=== PATIENT | male | born 1960 | race Hispanic/Latino ===

== ENCOUNTER 2022-11-18 10:55 | Inpatient (IN) | payer OTHER ==
[~2022-11-18] VITALS: Ht 177.8 cm; Wt 97.5 kg
[2022-11-18 11:27] LABS: BASOPHILS # (AUTO) 0.06 K/uL (0.00-0.20); BASOPHILS % (AUTO) 0.7 % (0.0-5.0); EOSINOPHILS # (AUTO) 0.05 K/uL (0.00-0.70); EOSINOPHILS % (AUTO) 0.5 % (0.0-8.0); HEMATOCRIT 40.6 % (42-54); IMMATURE GRANULOCYTE ABSOLUTE 0.03 K/uL (0-1); LYMPHOCYTES # (AUTO) 1.8 K/uL (1.0-4.8); LYMPHOCYTES % (AUTO) 19.3 % (21.0-51.0); MEAN CORPUSCULAR HEMOGLOBIN 38.4 pg (27.0-33.0); MEAN CORPUSCULAR HGB CONC 42.9 g/dL (32.0-36.0); MEAN CORPUSCULAR VOLUME 89.6 fL (79-99); MONOCYTES # (AUTO) 0.8 K/uL (0.1-1.0); MONOCYTES % (AUTO) 9.1 % (3.0-13.0); NEUTROPHILS # (AUTO) 6.4 K/uL (1.8-7.7); NEUTROPHILS % (AUTO) 70.1 % (40.0-77.0); PLATELET COUNT (AUTO) 156 K/uL (130-400); RED BLOOD CELL COUNT(AUTO) 4.53 MIL/uL (4.50-6.20); RED CELL DISTRIBUTION WIDTH 13.6 % (11.0-15.5); WHITE BLOOD COUNT (AUTO) 9.1 K/uL (4.8-10.8)
[2022-11-18 11:49] LABS: ALBUMIN 2.9 g/dL (3.5-5.0); BILIRUBIN,TOTAL 2.3 mg/dL (0.2-1.0); POTASSIUM 3.7 mmol/L (3.5-5.1); TOTAL PROTEIN, SERUM 7.7 g/dL (6.0-8.3)
[2022-11-18 11:51] LABS: SARS-CoV-2, RNA, NAAT NEGATIVE SARS CoV-2 (NEGATIVE)
[2022-11-18 11:56] LABS: INFLUENZA TYPE A Negative For Type A (NEGATIVE); INFLUENZA TYPE B Negative For Type B (NEGATIVE)
[2022-11-18] MEDS ORDERED: MORPHINE 4 MG SYG IM ONE (12:00)
[2022-11-18] MEDS ORDERED: 0.9%NACL 1000ML 2,000 ML IV ONE (12:00)
[2022-11-18] MEDS ORDERED: ONDANSETRON 4MG INJ IVP ONE (12:00)
[2022-11-18] MEDS ORDERED: INSULIN HUMULIN R 100 UNIT/ML 3ML IV ONE (13:30)
[2022-11-18 13:49] LABS: ABG BASE EXCESS -15.3 mmol/L (-2.0-3.0); ABG HCO3 11.6 mmol/L (21.0-28.0); ABG OXYGEN SATURATION 93.9 % (95.0-99.0); ABG PCO2 31 mmHg (35-48); ABG PH 7.189 (7.35-7.450); CARBON MONOXIDE 0.5; PO2, ARTERIAL BG 75.7 mmHg (83.0-108.0); VENT MODE, BG RA (ROOM AIR)
[2022-11-18 13:49] LABS: ADD UA MICROSCOPIC YES; APPEARANCE,URINE CLEAR (CLEAR); BILIRUBIN,URINE NEGATIVE (NEGATIVE); COLOR,URINE LIGHT-YELLOW (YELLOW); GLUCOSE, URINE (UA) >=1000 mg/dL (NEGATIVE); KETONES,URINE 150 mg/dL (NEGATIVE); LEUKOCYTE ESTERASE ,URINE NEGATIVE Leu/uL (NEGATIVE); NITRATE,URINE NEGATIVE (NEGATIVE); OCCULT BLOOD,URINE NEGATIVE (NEGATIVE); PH,URINE 5.5 (5.0-8.0); PROTEIN,URINE 50 mg/dL (NEGATIVE); UROBILINOGEN,URINE 0.2 mg/dL (0.2-1.0)
[2022-11-18 13:50] LABS: MUCUS,URINE RARE LPF (None Seen); RBC,URINE 0-1 /HPF (0-1); SQUAMOUS EPITHELIAL CELL,UR RARE /HPF (0-2); WBC,URINE 0-1 /HPF (0-1)
[2022-11-18] MEDS ORDERED: MAGNESIUM 2GM PREMIX 50ML 50 ML IV PRN (14:00)
[2022-11-18] MEDS ORDERED: HYDROMORPHONE 1 MG INJ IVP ONE (14:00)
[2022-11-18] MEDS ORDERED: POTASSIUM CHLORIDE 20MEQ/100ML 100 ML IV PRN (14:00)
[2022-11-18] MEDS ORDERED: GLUCAGON 1MG KIT 1 MG ML IM PRN (14:00)
[2022-11-18] MEDS ORDERED: 0.9%NACL 1000ML 1,000 ML IV ONE (14:00)
[2022-11-18] MEDS ORDERED: DEXTROSE 50%-WATER 50 ML DISP.SYRIN IV PRN (14:00)
[2022-11-18] MEDS: 0.9%NACL 1000ML 1,000 ML IV SCH ×2 (14:41→20:46)
[2022-11-18] MEDS ORDERED: INSULIN REGULAR, HUMAN 3ML 100 UNIT in 0.9%NACL 100ML 99 ML IV SCH ×2 (15:30)
[2022-11-18] MEDS ORDERED: IOHEXOL 350 MG/ML 100ML INFUS..BTL IV ONE (16:02)
[2022-11-18] MEDS ORDERED: INSULIN HUMULIN R 100 UNIT/ML 3ML SQ SCH (18:00)
[2022-11-18] MEDS: INSULIN REGULAR, HUMAN 3ML 100 UNIT in 0.9%NACL 100ML 100 ML IV SCH ×2 (19:00)
[2022-11-18] MEDS ORDERED: 0.9%NACL 1000ML 1,000 ML IV SCH (19:30)
[2022-11-18] MEDS ORDERED: MAGNESIUM 2GM PREMIX 50ML 50 ML IV SCH (19:30)
[2022-11-18] MEDS ORDERED: MORPHINE 2 MG SYG ONE (19:43)
[2022-11-18] MEDS ORDERED: MORPHINE 2 MG SYG IVP PRN ×2 (20:00)
[2022-11-18 20:12] LABS: POTASSIUM 5.1 mmol/L (3.5-5.1)
[2022-11-18] MEDS: D5W-1/2 NS/20MEQ KCL 1,000 ML IV SCH (20:38)
[2022-11-18] MEDS ORDERED: PROMETHAZINE HCL 25 MG TABLET PO PRN (21:00)
[2022-11-18] MEDS ORDERED: CHLORDIAZEPOXIDE HCL 25 MG CAP PO PRN ×2 (21:00)
[2022-11-18] MEDS ORDERED: FAMOTIDINE 20MG VIAL IV SCH (21:00)
[2022-11-18] MEDS ORDERED: PHARMACY COMMUNICATION MISC PRN (21:00)
[2022-11-18] MEDS ORDERED: LORAZEPAM 2 MG/ML 1 ML VIAL IVP PRN ×2 (21:00)
[2022-11-18 21:12] LABS: CREATININE 0.8 mg/dL (0.5-1.5)
[2022-11-18] MEDS: THIAMINE HCL 100 MG, FOLIC ACID 1 MG, M.V.I. IV [ADULT] 10 ML in 0.9%NACL 1000ML 1,000 ML IV SCH (21:16)
[2022-11-19] VITALS (23 sets, daily range): BP systolic 108–132; BP diastolic 59–80; PULSE 94–110; RESP 18–29; O2SAT 95–97
[2022-11-19] MEDS ORDERED: METF-444 PO (00:01)
[2022-11-19] MEDS: MORPHINE 2 MG SYG IVP PRN ×2 (00:30→10:08)
[2022-11-19 01:02] LABS: CREATININE 0.4 mg/dL (0.5-1.5)
[2022-11-19 01:43] LABS: POTASSIUM 4.1 mmol/L (3.5-5.1)
[2022-11-19 02:09] LABS: CREATININE 0.5 mg/dL (0.5-1.5)
[2022-11-19] MEDS: D5W-1/2 NS/20MEQ KCL 1,000 ML IV SCH (03:51)
[2022-11-19] MEDS: 0.9%NACL 1000ML 1,000 ML IV SCH ×3 (03:51→19:13)
[2022-11-19 06:25] LABS: HEMATOCRIT 39.3 % (42-54); MEAN CORPUSCULAR HEMOGLOBIN 33.4 pg (27.0-33.0); MEAN CORPUSCULAR HGB CONC 37.7 g/dL (32.0-36.0); MEAN CORPUSCULAR VOLUME 88.7 fL (79-99); RED BLOOD CELL COUNT(AUTO) 4.43 MIL/uL (4.50-6.20); RED CELL DISTRIBUTION WIDTH 14.2 % (11.0-15.5); WHITE BLOOD COUNT (AUTO) 6.9 K/uL (4.8-10.8)
[2022-11-19 07:20] LABS: ALBUMIN 2.6 g/dL (3.5-5.0); BILIRUBIN,TOTAL 0.5 mg/dL (0.2-1.0); CARBON DIOXIDE 17 mmol/L (21-32); CHLORIDE 103 mmol/L (101-111); CREATININE 0.9 mg/dL (0.5-1.5); GLOMERULAR FILTR. RATE CALC 98 mL/min (>90); GLUCOSE,RANDOM 237 mg/dL (70-105); SODIUM SERUM 133 mmol/L (136-145); TOTAL PROTEIN, SERUM 6.9 g/dL (6.0-8.3); TRIGLYCERIDES 608 mg/dL (30-200); UREA NITROGEN, BLOOD 5 mg/dL (7-18)
[2022-11-19 07:36] LABS: ASPARTATE AMINOTRANSFERASE 23 U/L (10-37)
[2022-11-19 07:37] LABS: ALANINE AMINOTRANSFERASE < 6 U/L (12-78)
[2022-11-19 07:52] LABS: CARBON DIOXIDE 15 mmol/L (21-32); CHLORIDE 101 mmol/L (101-111); GLUCOSE,RANDOM 286 mg/dL (70-105); SODIUM SERUM 132 mmol/L (136-145); UREA NITROGEN, BLOOD 5 mg/dL (7-18)
[2022-11-19 08:22] LABS: CREATININE < 0.2 mg/dL (0.5-1.5); GLOMERULAR FILTR. RATE CALC 154 mL/min (>90)
[2022-11-19] MEDS: FISH OIL 1000 MG/CAP PO SCH ×3 (09:00→20:46)
[2022-11-19] MEDS: FENOFIBRATE NANOCRYSTALLIZED 145 MG TAB PO SCH ×2 (09:00→09:50)
[2022-11-19] MEDS: PANTOPRAZOLE 40 MG/VIAL IVP SCH ×2 (09:13→20:47)
[2022-11-19] MEDS: ENOXAPARIN SODIUM 40 MG/0.4 ML SYRINGE SQ SCH (09:14)
[2022-11-19] MEDS: INSULIN GLARGINE 100 UNITS/ML 10 ML VIAL SQ SCH ×2 (10:19→20:51)
[2022-11-19] MEDS ORDERED: MAGNESIUM 2GM PREMIX 50ML 50 ML IV PRN (10:30)
[2022-11-19] MEDS ORDERED: MAGNESIUM 2GM PREMIX 50ML 50 ML IV SCH (12:00)
[2022-11-19 12:29] LABS: CREATININE 0.8 mg/dL (0.5-1.5); POTASSIUM 3.4 mmol/L (3.5-5.1)
[2022-11-19] MEDS: POTASSIUM CHLORIDE 10MEQ/100ML 100 ML IV PRN ×3 (13:33→23:52)
[2022-11-19 16:02] LABS: CREATININE 0.7 mg/dL (0.5-1.5); POTASSIUM 3.9 mmol/L (3.5-5.1)
[2022-11-19] MEDS: INSULIN REGULAR, HUMAN 3ML 100 UNIT in 0.9%NACL 100ML 100 ML IV SCH ×2 (19:11)
[2022-11-19 19:43] LABS: CREATININE 0.7 mg/dL (0.5-1.5); MAGNESIUM 2.1 mg/dL (1.80-2.40); POTASSIUM 3.6 mmol/L (3.5-5.1)
[2022-11-19] MEDS: THIAMINE HCL 100 MG, FOLIC ACID 1 MG, M.V.I. IV [ADULT] 10 ML in 0.9%NACL 1000ML 1,000 ML IV SCH (20:49)
[2022-11-19 23:31] LABS: CREATININE 0.8 mg/dL (0.5-1.5); POTASSIUM 3.1 mmol/L (3.5-5.1)
[2022-11-20] VITALS (64 sets, daily range): BP systolic 96–115; BP diastolic 38–77; PULSE 88–110; RESP 15–30; O2SAT 97–98
[2022-11-20] MEDS: POTASSIUM CHLORIDE 10MEQ/100ML 100 ML IV PRN ×3 (01:07→11:23)
[2022-11-20 03:49] LABS: BASOPHILS # (AUTO) 0.02 K/uL (0.00-0.20); BASOPHILS % (AUTO) 0.3 % (0.0-5.0); EOSINOPHILS # (AUTO) 0.05 K/uL (0.00-0.70); EOSINOPHILS % (AUTO) 0.8 % (0.0-8.0); HEMATOCRIT 33.5 % (42-54); IMMATURE GRANULOCYTE ABSOLUTE 0.02 K/uL (0-1); LYMPHOCYTES # (AUTO) 1.3 K/uL (1.0-4.8); LYMPHOCYTES % (AUTO) 20.5 % (21.0-51.0); MEAN CORPUSCULAR HEMOGLOBIN 31.5 pg (27.0-33.0); MEAN CORPUSCULAR HGB CONC 35.2 g/dL (32.0-36.0); MEAN CORPUSCULAR VOLUME 89.3 fL (79-99); MONOCYTES # (AUTO) 0.5 K/uL (0.1-1.0); MONOCYTES % (AUTO) 7.7 % (3.0-13.0); NEUTROPHILS # (AUTO) 4.3 K/uL (1.8-7.7); NEUTROPHILS % (AUTO) 70.4 % (40.0-77.0); PLATELET COUNT (AUTO) 127 K/uL (130-400); RED BLOOD CELL COUNT(AUTO) 3.75 MIL/uL (4.50-6.20); RED CELL DISTRIBUTION WIDTH 14.3 % (11.0-15.5); WHITE BLOOD COUNT (AUTO) 6.1 K/uL (4.8-10.8)
[2022-11-20 04:06] LABS: ALBUMIN 2.1 g/dL (3.5-5.0); BILIRUBIN,DIRECT 0.1 mg/dL (0.0-0.3); BILIRUBIN,TOTAL 0.6 mg/dL (0.2-1.0); CREATININE 0.6 mg/dL (0.5-1.5); POTASSIUM 3.6 mmol/L (3.5-5.1); TOTAL PROTEIN, SERUM 5.8 g/dL (6.0-8.3)
[2022-11-20] MEDS: 0.9%NACL 1000ML 1,000 ML IV SCH ×3 (05:15→21:50)
[2022-11-20 07:41] LABS: CREATININE 0.6 mg/dL (0.5-1.5); POTASSIUM 3.1 mmol/L (3.5-5.1)
[2022-11-20] MEDS: THIAMINE HCL 100 MG/ML 2ML VIAL IVP SCH (07:59)
[2022-11-20] MEDS: FISH OIL 1000 MG/CAP PO SCH ×2 (07:59→20:29)
[2022-11-20] MEDS: FENOFIBRATE NANOCRYSTALLIZED 145 MG TAB PO SCH (08:00)
[2022-11-20] MEDS: ENOXAPARIN SODIUM 40 MG/0.4 ML SYRINGE SQ SCH (08:00)
[2022-11-20] MEDS: PANTOPRAZOLE 40 MG/VIAL IVP SCH ×2 (08:00→20:29)
[2022-11-20] MEDS: INSULIN GLARGINE 100 UNITS/ML 10 ML VIAL SQ SCH ×2 (08:01→20:30)
[2022-11-20] MEDS: INSULIN HUMULIN R 100 UNIT/ML 3ML SQ SCH ×3 (11:20→20:32)
[2022-11-20] MEDS ORDERED: POTASSIUM CHLORIDE 10% ELIXIR 20 MEQ/15 ML UDCUP PO PRN (12:00)
[2022-11-20 13:13] LABS: ABG BASE EXCESS -1.3 mmol/L (-2.0-3.0); ABG HCO3 23.6 mmol/L (21.0-28.0); ABG OXYGEN SATURATION 93.2 % (95.0-99.0); ABG PCO2 41 mmHg (35-48); ABG PH 7.383 (7.35-7.450); PO2, ARTERIAL BG 67.5 mmHg (83.0-108.0); VENT MODE, BG RA (ROOM AIR)
[2022-11-20 16:17] LABS: CREATININE 0.6 mg/dL (0.5-1.5); POTASSIUM 3.6 mmol/L (3.5-5.1)
[2022-11-20] MEDS: THIAMINE HCL 100 MG, FOLIC ACID 1 MG, M.V.I. IV [ADULT] 10 ML in 0.9%NACL 1000ML 1,000 ML IV SCH (20:33)
[2022-11-21] VITALS (13 sets, daily range): BP systolic 107–120; BP diastolic 57–83; PULSE 79–88; RESP 16–28; O2SAT 97–99
[2022-11-21 04:39] LABS: BASOPHILS # (AUTO) 0.01 K/uL (0.00-0.20); BASOPHILS % (AUTO) 0.2 % (0.0-5.0); EOSINOPHILS % (AUTO) 1.8 % (0.0-8.0); HEMATOCRIT 31.5 % (42-54); IMMATURE GRANULOCYTE ABSOLUTE 0.03 K/uL (0-1); LYMPHOCYTES # (AUTO) 1.3 K/uL (1.0-4.8); LYMPHOCYTES % (AUTO) 22.5 % (21.0-51.0); MEAN CORPUSCULAR HEMOGLOBIN 30.9 pg (27.0-33.0); MEAN CORPUSCULAR HGB CONC 34.3 g/dL (32.0-36.0); MEAN CORPUSCULAR VOLUME 90.3 fL (79-99); MONOCYTES # (AUTO) 0.5 K/uL (0.1-1.0); MONOCYTES % (AUTO) 8.2 % (3.0-13.0); NEUTROPHILS # (AUTO) 3.8 K/uL (1.8-7.7); NEUTROPHILS % (AUTO) 66.8 % (40.0-77.0); PLATELET COUNT (AUTO) 132 K/uL (130-400); RED BLOOD CELL COUNT(AUTO) 3.49 MIL/uL (4.50-6.20); RED CELL DISTRIBUTION WIDTH 14.7 % (11.0-15.5); WHITE BLOOD COUNT (AUTO) 5.6 K/uL (4.8-10.8)
[2022-11-21 04:57] LABS: ALBUMIN 2.1 g/dL (3.5-5.0); BILIRUBIN,DIRECT 0.1 mg/dL (0.0-0.3); BILIRUBIN,TOTAL 0.4 mg/dL (0.2-1.0); CREATININE 0.6 mg/dL (0.5-1.5); POTASSIUM 3.1 mmol/L (3.5-5.1); TOTAL PROTEIN, SERUM 5.7 g/dL (6.0-8.3)
[2022-11-21] MEDS: KCL 20 MEQ ERTAB PO PRN ×4 (05:29→17:39)
[2022-11-21] MEDS: 0.9%NACL 1000ML 1,000 ML IV SCH ×3 (05:32→22:01)
[2022-11-21] MEDS: INSULIN HUMULIN R 100 UNIT/ML 3ML SQ SCH ×4 (07:30→20:42)
[2022-11-21] MEDS: INSULIN GLARGINE 100 UNITS/ML 10 ML VIAL SQ SCH ×2 (08:04→20:41)
[2022-11-21] MEDS: FISH OIL 1000 MG/CAP PO SCH ×2 (08:31→20:41)
[2022-11-21] MEDS: PANTOPRAZOLE 40 MG/VIAL IVP SCH (08:31)
[2022-11-21] MEDS: FENOFIBRATE NANOCRYSTALLIZED 145 MG TAB PO SCH (08:31)
[2022-11-21] MEDS: THIAMINE HCL 100 MG/ML 2ML VIAL IVP SCH (08:31)
[2022-11-21] MEDS: ENOXAPARIN SODIUM 40 MG/0.4 ML SYRINGE SQ SCH ×2 (08:32→08:33)
[2022-11-21] MEDS: PANTOPRAZOLE 40 MG TAB DR PO SCH (20:41)
[2022-11-22] VITALS: BP 123/76; PULSE 86; RESP 18
[2022-11-22 04:00] VITALS: BP 125/84; PULSE 80; RESP 18
[2022-11-22] MEDS: INSULIN HUMULIN R 100 UNIT/ML 3ML SQ SCH ×4 (05:31→20:39)
[2022-11-22 06:07] LABS: BASOPHILS # (AUTO) 0.02 K/uL (0.00-0.20); BASOPHILS % (AUTO) 0.4 % (0.0-5.0); EOSINOPHILS # (AUTO) 0.12 K/uL (0.00-0.70); EOSINOPHILS % (AUTO) 2.4 % (0.0-8.0); HEMATOCRIT 31.7 % (42-54); IMMATURE GRANULOCYTE ABSOLUTE 0.03 K/uL (0-1); LYMPHOCYTES # (AUTO) 1.4 K/uL (1.0-4.8); LYMPHOCYTES % (AUTO) 27.6 % (21.0-51.0); MEAN CORPUSCULAR HEMOGLOBIN 30.3 pg (27.0-33.0); MEAN CORPUSCULAR HGB CONC 33.1 g/dL (32.0-36.0); MEAN CORPUSCULAR VOLUME 91.4 fL (79-99); MONOCYTES # (AUTO) 0.4 K/uL (0.1-1.0); MONOCYTES % (AUTO) 8.5 % (3.0-13.0); NEUTROPHILS % (AUTO) 60.5 % (40.0-77.0); PLATELET COUNT (AUTO) 149 K/uL (130-400); RED BLOOD CELL COUNT(AUTO) 3.47 MIL/uL (4.50-6.20); RED CELL DISTRIBUTION WIDTH 14.9 % (11.0-15.5); WHITE BLOOD COUNT (AUTO) 4.9 K/uL (4.8-10.8)
[2022-11-22] MEDS: INSULIN GLARGINE 100 UNITS/ML 10 ML VIAL SQ SCH ×2 (06:08→20:49)
[2022-11-22 06:29] LABS: ALBUMIN 2.1 g/dL (3.5-5.0); BILIRUBIN,DIRECT 0.1 mg/dL (0.0-0.3); BILIRUBIN,TOTAL 0.3 mg/dL (0.2-1.0); CREATININE 0.5 mg/dL (0.5-1.5); TOTAL PROTEIN, SERUM 5.9 g/dL (6.0-8.3)
[2022-11-22 06:31] LABS: POTASSIUM 2.8 mmol/L (3.5-5.1)
[2022-11-22] MEDS: KCL 20 MEQ ERTAB PO PRN ×6 (06:40→17:20)
[2022-11-22 08:00] VITALS: BP 125/90; PULSE 76; RESP 20; O2SAT 96
[2022-11-22] MEDS: FISH OIL 1000 MG/CAP PO SCH ×2 (09:34→19:50)
[2022-11-22] MEDS: THIAMINE HCL 100 MG TABLET PO SCH (09:35)
[2022-11-22] MEDS: PANTOPRAZOLE 40 MG TAB DR PO SCH ×2 (09:35→19:50)
[2022-11-22] MEDS: FENOFIBRATE NANOCRYSTALLIZED 145 MG TAB PO SCH (09:35)
[2022-11-22] MEDS: ENOXAPARIN SODIUM 40 MG/0.4 ML SYRINGE SQ SCH (09:36)
[2022-11-22 12:00] VITALS: BP 128/78; PULSE 85; RESP 20
[2022-11-22] MEDS: 0.9%NACL 1000ML 1,000 ML IV SCH ×2 (12:12→23:03)
[2022-11-22 16:00] VITALS: BP 139/79; PULSE 80; RESP 20
[2022-11-22 20:00] VITALS: BP 139/74; PULSE 75; RESP 18
[2022-11-22] MEDS ORDERED: ZOLPIDEM TARTRATE 5 MG TAB PO ONE (23:00)
[2022-11-23] VITALS: BP 142/93; PULSE 79; RESP 18
[2022-11-23 04:00] VITALS: BP 147/91; PULSE 78; RESP 18
[2022-11-23 06:06] LABS: BASOPHILS # (AUTO) 0.01 K/uL (0.00-0.20); BASOPHILS % (AUTO) 0.2 % (0.0-5.0); EOSINOPHILS # (AUTO) 0.15 K/uL (0.00-0.70); EOSINOPHILS % (AUTO) 3.5 % (0.0-8.0); HEMATOCRIT 32.5 % (42-54); IMMATURE GRANULOCYTE ABSOLUTE 0.02 K/uL (0-1); LYMPHOCYTES # (AUTO) 1.4 K/uL (1.0-4.8); LYMPHOCYTES % (AUTO) 31.7 % (21.0-51.0); MEAN CORPUSCULAR HEMOGLOBIN 30.7 pg (27.0-33.0); MEAN CORPUSCULAR HGB CONC 33.5 g/dL (32.0-36.0); MEAN CORPUSCULAR VOLUME 91.5 fL (79-99); MONOCYTES # (AUTO) 0.5 K/uL (0.1-1.0); MONOCYTES % (AUTO) 11.5 % (3.0-13.0); NEUTROPHILS # (AUTO) 2.2 K/uL (1.8-7.7); NEUTROPHILS % (AUTO) 52.6 % (40.0-77.0); PLATELET COUNT (AUTO) 155 K/uL (130-400); RED BLOOD CELL COUNT(AUTO) 3.55 MIL/uL (4.50-6.20); RED CELL DISTRIBUTION WIDTH 14.5 % (11.0-15.5); WHITE BLOOD COUNT (AUTO) 4.3 K/uL (4.8-10.8)
[2022-11-23 06:18] LABS: ALBUMIN 2.2 g/dL (3.5-5.0); BILIRUBIN,DIRECT 0.1 mg/dL (0.0-0.3); BILIRUBIN,TOTAL 0.4 mg/dL (0.2-1.0); CREATININE 0.6 mg/dL (0.5-1.5); POTASSIUM 3.2 mmol/L (3.5-5.1); TOTAL PROTEIN, SERUM 6.1 g/dL (6.0-8.3)
[2022-11-23] MEDS: INSULIN HUMULIN R 100 UNIT/ML 3ML SQ SCH ×2 (07:08→11:29)
[2022-11-23] MEDS: INSULIN GLARGINE 100 UNITS/ML 10 ML VIAL SQ SCH (07:09)
[2022-11-23] MEDS: KCL 20 MEQ ERTAB PO PRN ×2 (07:19→11:20)
[2022-11-23 08:00] VITALS: BP 139/93; PULSE 71; RESP 17; O2SAT 96
[2022-11-23] MEDS: FENOFIBRATE NANOCRYSTALLIZED 145 MG TAB PO SCH (08:46)
[2022-11-23] MEDS: THIAMINE HCL 100 MG TABLET PO SCH (08:46)
[2022-11-23] MEDS: FISH OIL 1000 MG/CAP PO SCH (08:46)
[2022-11-23] MEDS: PANTOPRAZOLE 40 MG TAB DR PO SCH (08:46)
[2022-11-23] MEDS: ENOXAPARIN SODIUM 40 MG/0.4 ML SYRINGE SQ SCH (08:47)
[2022-11-23] MEDS: 0.9%NACL 1000ML 1,000 ML IV SCH (08:53)
[2022-11-23] MEDS ORDERED: KCL 20 MEQ ERTAB PO ONE (11:30)
== END 2022-11-23 12:25 | disposition home or self-care (01) | DRG 637 ==
LOC: EDH 10:55 → EDHIP 10:56 → 2CV 11-19 05:00 → 2CH 11-19 15:12 → 3CH 11-21 10:30
PROVIDERS: ADMIT Hospitalist; ATTEND Hospitalist
DX: E11.10 Type 2 diabetes mellitus with ketoacidosis without coma (principal); E43 Unspecified severe protein-calorie malnutrition; K85.80 Other acute pancreatitis without necrosis or infection; E87.1 Hypo-osmolality and hyponatremia; Z20.822 Contact with and (suspected) exposure to COVID-19; D50.9 Iron deficiency anemia, unspecified; F10.20 Alcohol dependence, uncomplicated; E86.1 Hypovolemia; E78.1 Pure hyperglyceridemia; Z68.30 Body mass index [BMI] 30.0-30.9, adult; E87.6 Hypokalemia; E66.09 Other obesity due to excess calories; Z79.84 Long term (current) use of oral hypoglycemic drugs; Z79.899 Other long term (current) drug therapy
CPT/HCPCS: 36415; 36600; 71045; 74177; 80048; 80053; 80076; 81001; 82010; 82435; 82607; 82746; 82803; 82947; 82948; 83036; 83605; 83690; 83735; 84132; 84145; 84295; 84478; 84484; 85018; 85025; 85027; 85651; 86140; 86341; 87635; 87804; 93005; C9113; C9803; G0378; J1170; J1650; J1815; J2270; J2405; J3411; J3475; J3480; J3490; J7030; Q9967